=== PATIENT | female | born 1990 | race Caucasian/White ===

== ENCOUNTER 2019-06-17 13:57 | Emergency (ER) | payer OTHER ==
[~2019-06-17] VITALS: Ht 160 cm; Wt 54.4 kg
[~2019-06-17 13:57] MED LIST: HYDROCODONE-AP1 EAC6 PO; IBUPROFEN 800800 M1 PO; PENICILLIN V P500 MG PO
[2019-06-17 14:09] VITALS: BP 126/37
[2019-06-17] MEDS ORDERED: AFRIN15 ML NS (14:27)
[2019-06-17] MEDS ORDERED: KEFLEX500 M1 PO (14:27)
[2019-06-17] MEDS ORDERED: MEDROLDOSEPACK PO (14:27)
[2019-06-17] MEDS ORDERED: TYLENOL WITH CO1 TA1 PO (14:28)
== END 2019-06-17 14:40 | disposition home or self-care (01) ==
LOC: M.ERS 13:57
DX: J01.90 Acute sinusitis, unspecified (principal); Z91.040 Latex allergy status; Z88.0 Allergy status to penicillin; Z88.5 Allergy status to narcotic agent

== ENCOUNTER 2019-12-16 13:19 | Emergency (ER) | payer OTHER ==
[~2019-12-16] VITALS: Ht 160 cm; Wt 49.9 kg
[~2019-12-16 13:19] MED LIST changes: +AFRIN15 ML NS; +KEFLEX500 M1 PO; +MEDROLDOSEPACK PO; +TYLENOL WITH CO1 TA1 PO
[2019-12-16 13:25] VITALS: BP 121/63
[2019-12-16] MEDS ORDERED: TYLENOL WITH CO1 TA1 PO (13:59)
[2019-12-16] MEDS ORDERED: KEFLEX500 M1 PO (13:59)
== END 2019-12-16 14:10 | disposition home or self-care (01) ==
LOC: M.ERS 13:19
DX: H92.01 Otalgia, right ear (principal); F41.9 Anxiety disorder, unspecified; Z88.0 Allergy status to penicillin; Z88.5 Allergy status to narcotic agent; Z91.040 Latex allergy status; Z79.899 Other long term (current) drug therapy

== ENCOUNTER 2021-08-09 11:09 | Emergency (ER) | payer OTHER, MEDICAID ==
[~2021-08-09] VITALS: Ht 160 cm; Wt 52.2 kg
[2021-08-09 12:04] LABS: URINE BILIRUBIN NEGATIVE (Negative); URINE BLOOD NEGATIVE (Negative); URINE CLARITY CLEAR; URINE COLOR YELLOW; URINE GLUCOSE-RANDOM NEGATIVE (Negative); URINE KETONES NEGATIVE (Negative); URINE LEUKOCYTES NEGATIVE (Negative); URINE NITRITE NEGATIVE (Negative); URINE PROTEIN NEGATIVE (Negative); URINE UROBILINOGEN 0.2 E.U./dl (0.2-1.0)
[2021-08-09] MEDS ORDERED: DIFLUCAN150 M1 PO (13:25)
[2021-08-09 13:36] VITALS: BP 115/51
== END 2021-08-09 13:40 | disposition home or self-care (01) ==
LOC: M.ERS 11:09
PROVIDERS: Physician Assistant
DX: B37.3 Candidiasis of vulva and vagina (principal); F41.9 Anxiety disorder, unspecified; Z91.040 Latex allergy status; Z88.0 Allergy status to penicillin; Z88.5 Allergy status to narcotic agent